=== PATIENT | female | born 1935 | race Caucasian/White ===

== ENCOUNTER 2017-10-06 13:23 | Emergency (ER) | payer OTHER ==
[~2017-10-06] VITALS: Ht 165.1 cm; Wt 71.7 kg
[~2017-10-06 13:23] MED LIST: ALPRAZOLAM0.5 M1 PO; ASPIRIN81 MG PO; ATENOLOL50 MG PO; CITALOPRAM HBR20 MG PO; CYPROHEPTADINE H4 MG PO; DONNATAL PO; GEMFIBROZIL600 MG PO; PRILOSEC OTC20 MG PO
--- NOTE | 2017-10-06 15:02 | Diagnostic Imaging Report ---
Exam: Head CT without contrast History: Trauma, fall Comparison studies: Head CT 02/08/2016 Technique: Axial images were obtained from the skull base to the vertex. Coronal and sagittal images reconstructed from the axial data. Intravenous contrast: None Findings: Scalp: No abnormalities. Bones: No fractures, blastic or lytic lesions. Brain sulci: Mildly prominent. Ventricles: Mild compensatory dilatation. No hydrocephalus. Extra-axial spaces: No masses, no fluid collection. Parenchyma: No mass, acute hemorrhage or acute cortical vascular insults. Chronic cortical-subcortical insult in the cuneus gyrus of the left medial occipital lobe. There are chronic lacunar infarcts in the left striatocapsular region, left frontal reyez radiata, left lateral, head of the right caudate nucleus and right medial lentiform nucleus which are unchanged. Sellar/suprasellar region: No abnormalities. Craniocervical junction: Patent foramen magnum. No Chiari one malformation. Incidental findings: Atherosclerotic calcifications in the carotid siphons.. IMPRESSION: No acute abnormalities. No changes from the previous head CT of 02/08/2016. Chronic findings: 1. Mild generalized volume loss. 2. Chronic left occipital insult. 3. Moderate chronic microvascular ischemic changes. 4. Chronic lacunar infarcts as described. Signed by: Dr. Freddie Starkey M.D. on 10/06/2017 2:59 PM
[2017-10-06 15:47] VITALS: BP 187/85
== END 2017-10-06 16:00 | disposition home or self-care (01) ==
LOC: ER 13:31
DX: S00.03XA Contusion of scalp, initial encounter (principal); S30.0XXA Contusion of lower back and pelvis, initial encounter; W01.198A Fall on same level from slipping, tripping and stumbling with subsequent striking against other object, initial encounter; I10 Essential (primary) hypertension; E78.00 Pure hypercholesterolemia, unspecified; F41.9 Anxiety disorder, unspecified; F32.9 Major depressive disorder, single episode, unspecified
CPT/HCPCS: 70450; 99283

== ENCOUNTER 2018-04-23 19:12 | Emergency (ER) | payer OTHER ==
[~2018-04-23] VITALS: Ht 165.1 cm; Wt 71.7 kg
--- OUTSIDE RECORDS SUMMARY | 2018-04-23 19:16 | XMS REPORT ---
Author Author [facility] Address Unknown Phone Unavailable Care Team Providers Care Alarm Mechanism Adjuster Name Role Phone Kimmy BLEDSOE Unavailable Unavailable Problems This patient has no known problems. Allergies, Adverse Reactions, Alerts This patient has no known allergies or adverse reactions. Medications This patient has no known medications. Results Test Description Test Time Test Comments Text Results Atomic Results Result Comments CT BRAIN WO [place] [address] Patient Name: YOLY CARRIZALES MR #: [id number] : 1935 Age/Sex: 82/F Req #: [id number] Adm Physician: Ordered by: SUSANNA BLEDSOE MD Report #: [id number] Location: ER Room/Bed: Procedure: [id number] CT/CT BRAIN WO Exam Date: 10/06/17 Exam Time: 1420 REPORT STATUS: Signed Exam: Head CT without contrast History: Trauma, fall Comparison studies: Head CT 02/08/2016 Technique: Axial images were obtained from the skull base to the vertex. Coronal and sagittal images reconstructed from the axial data. Intravenous contrast: None Findings: Scalp: No abnormalities. Bones: No fractures, blastic or lytic lesions. Brain sulci: Mildly prominent. Ventricles: Mild compensatory dilatation. No hydrocephalus. Extra-axial spaces: No masses, no fluid collection. Parenchyma: No mass, acute hemorrhage or acute cortical vascular insults. Chronic cortical- subcortical insult in the cuneus gyrus of the left medial occipital lobe. There are chronic lacunar infarcts in the left striatocapsular region, left frontal reyez radiata, left lateral, head of the right caudate nucleus and right medial lentiform nucleus which are unchanged. Sellar/suprasellar region: No abnormalities. Craniocervical junction: Patent foramen magnum. No Chiari one malformation. Incidental findings: Atherosclerotic calcifications in the carotid siphons.. IMPRESSION: No acute abnormalities. No changes from the previous head CT of 02/08/2016. Chronic findings: 1. Mild generalized volume loss. 2. Chronic left occipital insult. 3. Moderate chronic microvascular ischemic changes. 4. Chronic lacunar infarcts as described. Signed by: Dr. Misha Starkey M.D. on 10/06/2017 2:59 PM Dictated By: MISHA STARKEY MD [id number] Transcribed By: ANTONI on 10/06/17 9720 COPY TO: SUSANNA BLEDSOE MD
[2018-04-23] MEDS ORDERED: MORPHINE SULFATE 2 MG/ML SYR IV NR (19:30)
[2018-04-23] MEDS ORDERED: METOPROLOL TARTRATE INJ 1 MG/ML VIAL IV NR (19:30)
[2018-04-23] MEDS ORDERED: DIATRIZOATE MEGL/DIATRIZOA SOD 30 ML BTL PO ONE (19:38)
[2018-04-23 20:22] LABS: INR 0.87; PROTHROMBIN TIME 12.6 seconds (11.9-14.5)
[2018-04-23 20:23] LABS: PARTIAL THROMBOPLASTIN TIME 29.2 seconds (23.8-35.5)
[2018-04-23 20:33] LABS: ALANINE AMINOTRANSFERASE 12 IU/L (0-55); ALBUMIN 4.1 g/dL (3.5-5.0); ALBUMIN/GLOBULIN RATIO 1.1 (0.8-2.0); ALKALINE PHOSPHATASE 73 IU/L (40-150); AMYLASE 116 U/L (25-125); ANION GAP 18.9 mmol/L (8-16); BLOOD UREA NITROGEN 8 mg/dL (7-26); BUN/CREATININE RATIO 10 (6-25); CALCIUM 10.4 mg/dL (8.4-10.2); CARBON DIOXIDE 23 mmol/L (22-29); CHLORIDE 100 mmol/L (98-107); CREATINE KINASE 45 IU/L (29-168); CREATININE, SERUM 0.83 mg/dL (0.57-1.11); EST GLOMERULAR FILTRATION RATE > 60 ML/MIN (60-); GLUCOSE 97 mg/dL (74-118); LIPASE 80 U/L (8-78); MAGNESIUM 2.7 MG/DL (1.3-2.1); SODIUM 137 mmol/L (136-145)
[2018-04-23 20:34] LABS: POTASSIUM 4.9 mmol/L (3.5-5.1)
[2018-04-23] MEDS ORDERED: SODIUM CHLORIDE 0.9% 50ML 50 ML ONE (20:39)
[2018-04-23] MEDS ORDERED: IOPAMIDOL 370 MG/ML 200 ML INFUS..BTL INJ ONE (20:40)
[2018-04-23 20:45] LABS: BASOPHILS % 0.2 % (0.0-1.0); EOSINOPHILS # (AUTO) 0.2 (0.0-0.4); EOSINOPHILS % 4.9 % (0.0-6.0); HEMATOCRIT 41.6 % (34.2-44.1); HEMOGLOBIN 14.4 g/dL (12.0-16.0); LYMPHOCYTES # (AUTO) 1.8 (1.0-3.2); LYMPHOCYTES % 39.9 % (18.0-39.1); MEAN CORPUSCULAR HEMOGLOBIN 35.4 pg (28-32); MEAN CORPUSCULAR HGB CONC 34.6 g/dL (31-35); MEAN CORPUSCULAR VOLUME 102.2 fL (81-99); MONOCYTES # (AUTO) 0.3 (0.2-0.8); MONOCYTES % 5.8 % (4.4-11.3); NEUTROPHILS # (AUTO) 2.2 (2.1-6.9); PLATELET COUNT 156 x10e3/uL (140-360); RED BLOOD COUNT 4.07 x10e6/uL (3.6-5.1); RED CELL DISTRIBUTION WIDTH 12.7 % (11.7-14.4)
--- NOTE | 2018-04-23 21:24 | Diagnostic Imaging Report ---
EXAM: CT ABDOMEN AND PELVIS with IV CONTRAST DATE: 04/23/2018 7:28 PM Time stamp on Exam: 2056 hours INDICATION: Left hip pain on the left lower quadrant pain, concern for incarcerated hernia COMPARISON: None TECHNIQUE: The abdomen and pelvis were scanned using a multidetector helical scanner. Coronal and sagittal reformations were obtained. Dose modulation, iterative reconstruction, and/or weight based adjustment of the mA/kV was utilized to reduce the radiation dose to as low as reasonably achievable. Routine protocol performed. IV Contrast: 100 cc Isovue-370 Oral Contrast: Gastrografin FINDINGS: LOWER THORAX: No consolidations LIVER: No masses BILIARY: The gallbladder is not visualized. No ductal dilation. SPLEEN: No masses PANCREAS: No masses ADRENALS: No nodules KIDNEYS: Symmetric perfusion. No enhancing masses. No hydronephrosis. GI TRACT: No distention, wall thickening or evidence of obstruction. Moderate amount of retained colonic stool. Sigmoid colon diverticulosis without CT findings of diverticulitis. VESSELS: Advanced atherosclerotic changes of the abdominal aorta and branches without aneurysm. PERITONEUM/RETROPERITONEUM: No free air or fluid LYMPH NODES: No lymphadenopathy REPRODUCTIVE ORGANS: Uterus and ovaries are not visualized. BLADDER: Unremarkable SOFT TISSUES: Small left fat-containing inguinal hernia. BONES: No suspicious bone lesions. IMPRESSION: Small fat-containing left inguinal hernia without evidence of strangulation. Moderate amount of retained colonic stool without evidence for obstruction. Signed by: Dr. Adelita Calixto M.D. on 04/23/2018 9:21 PM
[2018-04-23] MEDS ORDERED: NIFEDIPINE 10 MG CAP PO ONE (21:40)
[2018-04-23] MEDS ORDERED: NIFEDIPINE 10 MG CAP PO STA (21:56)
[2018-04-23 22:05] LABS: BILIRUBIN,URINE NEGATIVE (NEGATIVE); CLARITY,URINE CLEAR (CLEAR); COLOR,URINE YELLOW (YELLOW); KETONES,URINE NEGATIVE (NEGATIVE); LEUKOCYTE ESTERASE ,URINE NEGATIVE (NEGATIVE); NITRITE,URINE NEGATIVE (NEGATIVE); PROTEIN,URINE DIPSTICK NEGATIVE (NEGATIVE); URINE UROBILINOGEN 0.2 mg/dL (0.2 - 1)
[2018-04-23] MEDS ORDERED: SODIUM CHLORIDE 0.9% 500ML 500 ML IV ONE (22:15)
[2018-04-23 22:23] LABS: BACTERIA,URINE FEW /HPF; EPITHELIAL CELLS,URINE FEW /LPF; RBC,URINE 0-5 /HPF (0-5); WBC,URINE (MAN) 0-5 /HPF (0-5)
[2018-04-23 23:06] VITALS: BP 165/76
== END 2018-04-23 23:11 | disposition home or self-care (01) ==
LOC: ER 19:12
DX: R10.32 Left lower quadrant pain (principal); S39.011A Strain of muscle, fascia and tendon of abdomen, initial encounter; K59.00 Constipation, unspecified; I10 Essential (primary) hypertension; E78.5 Hyperlipidemia, unspecified; G89.29 Other chronic pain; F41.9 Anxiety disorder, unspecified; F32.9 Major depressive disorder, single episode, unspecified; F17.210 Nicotine dependence, cigarettes, uncomplicated
CPT/HCPCS: 36415; 74177; 80053; 81001; 82150; 82550; 82553; 83605; 83690; 83735; 84484; 85025; 85610; 85730; 99284; J2270; J7040; Q9663; Q9967

== ENCOUNTER 2019-12-20 17:32 | Inpatient (IN) | payer MEDICARE, OTHER ==
[~2019-12-20] VITALS: Ht 165.1 cm; Wt 71.7 kg
--- NOTE | 2019-12-20 18:14 | Emergency Department Note ---
History of Present Illnes History of Present Illness Chief Complaint: COVID PUI History of Present Illness This is a 84 year old female with diffuse abd pain and cough of unknown duration. per son, patient with volumous diarrhea at home and progressive weakness over the course of the last several days . Historian: Patient Arrival Mode: Car History limited by: language barrier Onset (how long ago): day(s) Radiation: Reports abdomen Severity: moderate Onset quality: gradual Duration (how long): week(s) Timing of current episode: constant Progression: worsening Chronicity: new Relieving factors: none Exacerbating factors: none Associated symptoms: Reports fever/chills Treatments prior to arrival: none Past Medical/Family History Physician Review I have reviewed the patient's past medical and family history. Any updates have been documented here. Past Medical History Recent Fever: No Clinical Suspicion of Infectio: Yes New/Unexplained Change in Ment: No Past Medical History: Hypertension, Anxiety, Depression, Hyperlipedemia, Chronic Back Pain Other Medical History: SEASONAL ALLERGIES ARTHRITIS Past Surgical History: Cholecysctectomy, Hysterectomy, Back Surgery Other Surgery: DOZEN ON FEET Social History Smoking Cessation: Current some day smoker Alcohol Use: None Any Illegal Drug Use: No Other Last Tetanus: OOD Review of Systems Review of Systems Constitutional: Reports no symptoms EENTM: Reports no symptoms Cardiovascular: Reports no symptoms Respiratory: Reports cough Gastrointestinal: Reports diarrhea, Reports nausea, Reports vomiting Genitourinary: Reports no symptoms Musculoskeletal: Reports no symptoms Integumentary: Reports no symptoms Neurological: Reports no symptoms Psychological: Reports no symptoms Endocrine: Reports no symptoms Hematological/Lymphatic: Reports no symptoms Physical Exam Related Data Allergies: Coded Allergies: piroxicam (Verified Allergy, Mild, SWELLING, 10/06/17) Triage Vital Signs Vital Signs Date Time Temp Pulse Resp B/P (MAP) Pulse Ox O2 Delivery O2 Flow Rate FiO2 12/20/19 18:09 96.7 108 24 114/56 87 Room Air Vital signs reviewed: Yes Physical Exam CONSTITUTIONAL Constitutional: Present ill appearing HENT HENT: Present normocephalic, Present atraumatic, Present oropharynx clear/moist, Present nose normal HENT L/R: Present left ext ear normal, Present right ext ear normal EYES Eyes: Reports PERRL, Reports conjunctivae normal NECK Neck: Present ROM normal PULMONARY Pulmonary: Present effort normal, Present breath sounds normal CARDIOVASCULAR Cardiovascular: Present heart sounds normal, Present tachycardia GASTROINTESTINAL Abdominal: Present soft, Present nontender, Present bowel sounds normal GENITOURINARY Genitourinary: Present exam deferred SKIN Skin: Present warm, Present dry MUSCULOSKELETAL Musculoskeletal: Present ROM normal NEUROLOGICAL Neurological: Present alert, Present oriented x 3, Present no gross motor or sensory deficits PSYCHOLOGICAL Psychological: Present mood/affect normal, Present judgement normal Results Laboratory Lab results reviewed: Yes Laboratory comments Laboratory Tests Test 12/20/19 19:40 White Blood Count 10.07 x10e3/uL (4.8-10.8) Red Blood Count 4.54 x10e6/uL (3.6-5.1) Hemoglobin 15.2 g/dL (12.0-16.0) Hematocrit 42.7 % (34.2-44.1) Mean Corpuscular Volume 94.1 fL (81-99) Mean Corpuscular Hemoglobin 33.5 pg (28-32) Mean Corpuscular Hemoglobin Concent 35.6 g/dL (31-35) Red Cell Distribution Width 13.2 % (11.7-14.4) Platelet Count 161 x10e3/uL (140-360) Neutrophils (%) (Auto) 86.0 % (38.7-80.0) Lymphocytes (%) (Auto) 6.8 % (18.0-39.1) Monocytes (%) (Auto) 6.3 % (4.4-11.3) Eosinophils (%) (Auto) 0.1 % (0.0-6.0) Basophils (%) (Auto) 0.2 % (0.0-1.0) Neutrophils # (Auto) 8.7 (2.1-6.9) Lymphocytes # (Auto) 0.7 (1.0-3.2) Monocytes # (Auto) 0.6 (0.2-0.8) Eosinophils # (Auto) 0.0 (0.0-0.4) Basophils # (Auto) 0.0 (0.0-0.1) Absolute Immature Granulocyte (auto 0.06 x10e3/uL (0-0.1) Sodium Level 138 mmol/L (136-145) Potassium Level 2.8 mmol/L (3.5-5.1) Chloride Level 95 mmol/L (98-107) Carbon Dioxide Level 31 mmol/L (22-29) Anion Gap 14.8 mmol/L (8-16) Blood Urea Nitrogen 24 mg/dL (7-26) Creatinine 0.79 mg/dL (0.57-1.11) Estimat Glomerular Filtration Rate > 60 ML/MIN (60-) BUN/Creatinine Ratio 30 (6-25) Glucose Level 124 mg/dL (74-118) Calcium Level 9.9 mg/dL (8.4-10.2) Total Bilirubin 0.8 mg/dL (0.2-1.2) Aspartate Amino Transf (AST/SGOT) 52 IU/L (5-34) Alanine Aminotransferase (ALT/SGPT) 38 IU/L (0-55) Alkaline Phosphatase 73 IU/L (40-150) Creatine Kinase 299 IU/L (29-168) Creatine Kinase MB 5.60 ng/mL (0-5.0) Troponin I 0.042 ng/mL (0-0.300) B-Type Natriuretic Peptide 216.6 pg/mL (0-100) Total Protein 6.7 g/dL (6.5-8.1) Albumin 3.2 g/dL (3.5-5.0) Globulin 3.5 g/dL (2.3-3.5) Albumin/Globulin Ratio 0.9 (0.8-2.0) Imaging Imaging results reviewed: Yes Impressions [place] [address] Patient Name: YOLY CARRIZALES MR #: [id number] : 1935 Age/Sex: 84/F Req #: [id number] Adm Physician: Ordered by: SAM NEGRETE DO Report #: [id number] Location: ER Room/Bed: Procedure: CT/CT CHEST W Exam Date: 12/20/19 Exam Time: 2206 REPORT STATUS: Signed EXAM: CT Chest, Abdomen and Pelvis WITH contrast INDICATION: Weakness COMPARISON: 04/23/2018 TECHNIQUE: Chest, abdomen and pelvis were scanned utilizing a multidetector helical scanner from the lung apex to the pubic symphysis after administration of IV contrast. Coronal and sagittal reformations were obtained. Routine protocol was performed. Scan was performed when during portal venous phase. IV CONTRAST: 150 mL of Omnipaque 300 ORAL CONTRAST: Water COMPLICATIONS: None RADIATION DOSE: Total DLP: 843 mGy*cm Estimated effective dose: (DLP x 0.015 x size factor) mSv CTDIvol has been reviewed. It is below the limits set by the Radiation Protocol Committee (RPC). Dose modulation, iterative reconstruction, and/or weight based adjustment of the mA/kV was utilized to reduce the radiation dose to as low as reasonably achievable. FINDINGS: LINES and TUBES: None. LUNGS AND AIRWAYS: Large soft tissue enhancing mass centered in the right hilar region measures at least 8.6 x 6.5 cm (image 27). The mass results in complete obstruction of the right upper lobe bronchus with associated complete right upper lobe collapse. The mass encases and severely narrows the bronchus intermedius with associated distal subsegmental atelectasis and postobstructive pneumonitis. The right upper lobe pulmonary artery is severely narrowed by the mass. There is mild to moderate narrowing of the right middle lobe and right lower lobe pulmonary artery branches. 1.4 cm partially calcified left lower lobe pulmonary nodule consistent with a granuloma. Additional smaller calcified left upper lobe granuloma. Mild upper lobe predominant emphysema. PLEURA: Small mildly complex right pleural effusion. No pneumothorax. HEART AND MEDIASTINUM: Right paratracheal mediastinal soft tissue mass indistinguishable from the above described lung mass measures up to 4.7 x 4.2 cm. Normal heart size. No pericardial effusion. Prominent subcentimeter lymph nodes at the base of the neck. HEPATOBILIARY: Innumerable hypodense hepatic metastatic lesions measure up to 3.5 cm. No biliary ductal dilatation. GALLBLADDER: Poorly visualized and possibly surgically absent. SPLEEN: Calcified splenic granulomas. No splenomegaly. PANCREAS: No focal masses or ductal dilatation. ADRENALS: Prominent adrenal glands without discrete nodules. KIDNEYS/URETERS: Kidneys enhance symmetrically. No hydronephrosis. No cystic or solid mass lesions. No stones. GI TRACT: Moderate circumferential thickening of the rectal mucosa (image 120). Sigmoid diverticulosis. No specific evidence of small bowel obstruction. PELVIC ORGANS/BLADDER: The urinary bladder is unremarkable. The uterus is surgically absent. LYMPH NODES: No gross adenopathy. VESSELS: Advanced diffuse atherosclerotic vascular disease. Ectasia of the abdominal aorta. PERITONEUM / RETROPERITONEUM: No free air or fluid. BONES: Age-indeterminate mild compression deformity of the T12 vertebral body superiorly. Advanced thoracolumbar degenerative change. Indeterminate 1 cm sclerotic lesion of the right posterior iliac bone (image 97). SOFT TISSUES: Unremarkable. IMPRESSION: 1. Large soft tissue mass of the right hilar region with mediastinal extension most suggestive of small cell lung carcinoma. 2. The mass results in complete obstruction of the right upper lobe bronchus with associated complete right upper lobe collapse. The mass severely narrows the bronchus intermedius with associated distal subsegmental atelectasis and postobstructive pneumonitis. 3. Small malignant right pleural effusion. 4. Innumerable hepatic metastases. 5. Moderate circumferential mucosal thickening of the rectum. Differential considerations include colitis/proctitis and malignancy. 6. Indeterminate 1 cm sclerotic lesion of the right posterior iliac bone. Consider correlation with nuclear medicine bone scan. Signed by: Susanna Yao MD on 12/20/2019 10:45 PM Dictated By: SUSANNA YAO MD 44 Transcribed By: ANTONI on 12/20/192244 COPY TO: SAM NEGRETE DO~ Procedures 12 Lead ECG Interpretation ECG Interpretation : ECG: ECG 1 Edge Polisher: Interpreted by ED physician Date: Dec 20, 2019 Time: 19:52 Prior ECG tracings: reviewed Rhythm: atrial fibrillation Rate: tachycardia BPM: 104 QRS axis: left ST segment flattening: V1, V2, V3, V4, V5, V6 Critical Care Time Critcal care necessary due to: respiratory failure Critcal care time spent by me: develop tx plan w patient/surrogate, discussion w consultants, discussion w primary provider, evaluation patient response to tx, examination of patient, obtaining hx from patient/surrogate, order/review laboratory studies, order/review radiographic studies, pulse oximetry, re- evaluation of patient condition Assessment & Plan Medical Decision Making MDM 84 yof presents with dyspea and hypoxia. Slight Respiratory distress upon arrival. Diff Dx : PE, PTX, CHF, Sepsis, COVID-19 URI infection, ACS, ARDS, airway obstruction, Lung CA. Assessment & Plan Final Impression: (1) Lung cancer (2) Hypoxia (3) Hypokalemia (4) Liver metastases (5) Atrial fibrillation Depart Disposition: ADMITTED Last Vital Signs Date Time Temp Pulse Resp B/P (MAP) Pulse Ox O2 Delivery O2 Flow Rate FiO2 12/20/19 18:09 96.7 108 24 114/56 87 Room Air Home Meds Reported Medications Baring-3 Fatty Acids/Fish Oil (FISH OIL 1,000 MG SOFTGEL) 1 Each Capsule, 2 CAP PO DAILY 12/21/19 Levocetirizine Dihydrochloride (LEVOCETIRIZINE DIHYDROCHLORIDE) 5 Mg Tablet, 1 TAB PO HS 12/21/19 Metoprolol Succinate (METOPROLOL SUCCINATE) 50 Mg Tab.er.24h, 50 MG PO DAILY, MG 12/21/19 Citalopram Hydrobromide (CITALOPRAM HBR) 20 Mg Tablet, 20 MG PO DAILY, TAB 12/21/19 Lisinopril (LISINOPRIL) 10 Mg Tablet, 10 MG PO DAILY, #30 TAB 12/21/19 Aspirin (ASPIRIN) 81 Mg Tab.chew, 81 MG PO DAILY 04/13/13 Alprazolam (ALPRAZOLAM) 0.5 Mg Tab.rapdis, 0.5 MG PO BID PRN for ANXIETY 04/13/13 Gemfibrozil (GEMFIBROZIL) 600 Mg Tablet, 600 MG PO BID 04/13/13 Discontinued Reported Medications Atenolol (ATENOLOL) 50 Mg Tablet, 50 MG PO DAILY 04/13/13 SAM NEGRETE DO Dec 20, 2019 18:14
[2019-12-20] MEDS ORDERED: ASPIRIN 81 MG CHEW TAB PO ONE (18:15)
[2019-12-20 19:55] LABS: BASOPHILS % 0.2 % (0.0-1.0); EOSINOPHILS % 0.1 % (0.0-6.0); HEMATOCRIT 42.7 % (34.2-44.1); HEMOGLOBIN 15.2 g/dL (12.0-16.0); LYMPHOCYTES # (AUTO) 0.7 (1.0-3.2); LYMPHOCYTES % 6.8 % (18.0-39.1); MEAN CORPUSCULAR HEMOGLOBIN 33.5 pg (28-32); MEAN CORPUSCULAR HGB CONC 35.6 g/dL (31-35); MEAN CORPUSCULAR VOLUME 94.1 fL (81-99); MONOCYTES # (AUTO) 0.6 (0.2-0.8); MONOCYTES % 6.3 % (4.4-11.3); NEUTROPHILS # (AUTO) 8.7 (2.1-6.9); PLATELET COUNT 161 x10e3/uL (140-360); RED BLOOD COUNT 4.54 x10e6/uL (3.6-5.1); RED CELL DISTRIBUTION WIDTH 13.2 % (11.7-14.4)
[2019-12-20 20:15] LABS: ALANINE AMINOTRANSFERASE 38 IU/L (0-55); ALBUMIN 3.2 g/dL (3.5-5.0); ALBUMIN/GLOBULIN RATIO 0.9 (0.8-2.0); ALKALINE PHOSPHATASE 73 IU/L (40-150); ANION GAP 14.8 mmol/L (8-16); BLOOD UREA NITROGEN 24 mg/dL (7-26); BUN/CREATININE RATIO 30 (6-25); CALCIUM 9.9 mg/dL (8.4-10.2); CARBON DIOXIDE 31 mmol/L (22-29); CHLORIDE 95 mmol/L (98-107); CREATINE KINASE 299 IU/L (29-168); CREATININE, SERUM 0.79 mg/dL (0.57-1.11); EST GLOMERULAR FILTRATION RATE > 60 ML/MIN (60-); GLUCOSE 124 mg/dL (74-118); SODIUM 138 mmol/L (136-145)
[2019-12-20 20:17] LABS: POTASSIUM 2.8 mmol/L (3.5-5.1)
--- NOTE | 2019-12-20 20:41 | Diagnostic Imaging Report ---
EXAMINATION: CHEST SINGLE (PORTABLE) INDICATION: Cough. Weakness. COMPARISON: None available in PACS at this time although the prior examinations 2016. FINDINGS: TUBES and LINES: None. LUNGS and PLEURA: Increased density throughout right hemithorax with deviation of the trachea to the right of the midline may represent atelectasis/scarring, not completely evaluated with this examination. Consolidation not excluded. Probable small right pleural effusion. Left lung is compensatorily hyperinflated. No pneumothorax. HEART AND MEDIASTINUM: The cardiac silhouette is not otherwise. There are diffuse atherosclerotic calcifications within the aorta. BONES AND SOFT TISSUES: No acute osseous lesion. Bilateral humeral head exophytic screw. UPPER ABDOMEN: No free air under the diaphragm. Calcific secretions in the left upper quadrant represent splenic artery calcifications. IMPRESSION: Abnormal right hemithorax may a combination of atelectasis/collapse and pleural effusion. Considered CT chest with contrast for further evaluation. Signed by: Dr. Aline Nowak M.D. on 12/20/2019 8:37 PM
[2019-12-20] MEDS ORDERED: AZITHROMYCIN 500MG/NS 250 ML 250 ML IV STA (21:28)
--- NOTE | 2019-12-20 22:48 | Diagnostic Imaging Report ---
EXAM: CT Chest, Abdomen and Pelvis WITH contrast INDICATION: Weakness COMPARISON: 04/23/2018 TECHNIQUE: Chest, abdomen and pelvis were scanned utilizing a multidetector helical scanner from the lung apex to the pubic symphysis after administration of IV contrast. Coronal and sagittal reformations were obtained. Routine protocol was performed. Scan was performed when during portal venous phase. IV CONTRAST: 150 mL of Omnipaque 300 ORAL CONTRAST: Water COMPLICATIONS: None RADIATION DOSE: Total DLP: 843 mGy*cm Estimated effective dose: (DLP x 0.015 x size factor) mSv CTDIvol has been reviewed. It is below the limits set by the Radiation Protocol Committee (RPC). Dose modulation, iterative reconstruction, and/or weight based adjustment of the mA/kV was utilized to reduce the radiation dose to as low as reasonably achievable. FINDINGS: LINES and TUBES: None. LUNGS AND AIRWAYS: Large soft tissue enhancing mass centered in the right hilar region measures at least 8.6 x 6.5 cm (image 27). The mass results in complete obstruction of the right upper lobe bronchus with associated complete right upper lobe collapse. The mass encases and severely narrows the bronchus intermedius with associated distal subsegmental atelectasis and postobstructive pneumonitis. The right upper lobe pulmonary artery is severely narrowed by the mass. There is mild to moderate narrowing of the right middle lobe and right lower lobe pulmonary artery branches. 1.4 cm partially calcified left lower lobe pulmonary nodule consistent with a granuloma. Additional smaller calcified left upper lobe granuloma. Mild upper lobe predominant emphysema. PLEURA: Small mildly complex right pleural effusion. No pneumothorax. HEART AND MEDIASTINUM: Right paratracheal mediastinal soft tissue mass indistinguishable from the above described lung mass measures up to 4.7 x 4.2 cm. Normal heart size. No pericardial effusion. Prominent subcentimeter lymph nodes at the base of the neck. HEPATOBILIARY: Innumerable hypodense hepatic metastatic lesions measure up to 3.5 cm. No biliary ductal dilatation. GALLBLADDER: Poorly visualized and possibly surgically absent. SPLEEN: Calcified splenic granulomas. No splenomegaly. PANCREAS: No focal masses or ductal dilatation. ADRENALS: Prominent adrenal glands without discrete nodules. KIDNEYS/URETERS: Kidneys enhance symmetrically. No hydronephrosis. No cystic or solid mass lesions. No stones. GI TRACT: Moderate circumferential thickening of the rectal mucosa (image 120). Sigmoid diverticulosis. No specific evidence of small bowel obstruction. PELVIC ORGANS/BLADDER: The urinary bladder is unremarkable. The uterus is surgically absent. LYMPH NODES: No gross adenopathy. VESSELS: Advanced diffuse atherosclerotic vascular disease. Ectasia of the abdominal aorta. PERITONEUM / RETROPERITONEUM: No free air or fluid. BONES: Age-indeterminate mild compression deformity of the T12 vertebral body superiorly. Advanced thoracolumbar degenerative change. Indeterminate 1 cm sclerotic lesion of the right posterior iliac bone (image 97). SOFT TISSUES: Unremarkable. IMPRESSION: 1. Large soft tissue mass of the right hilar region with mediastinal extension most suggestive of small cell lung carcinoma. 2. The mass results in complete obstruction of the right upper lobe bronchus with associated complete right upper lobe collapse. The mass severely narrows the bronchus intermedius with associated distal subsegmental atelectasis and postobstructive pneumonitis. 3. Small malignant right pleural effusion. 4. Innumerable hepatic metastases. 5. Moderate circumferential mucosal thickening of the rectum. Differential considerations include colitis/proctitis and malignancy. 6. Indeterminate 1 cm sclerotic lesion of the right posterior iliac bone. Consider correlation with nuclear medicine bone scan. Signed by: Zachariah Hall MD on 12/20/2019 10:45 PM
[2019-12-20] MEDS ORDERED: POTASSIUM CHLORIDE 20 MEQ TAB CR PO STA (23:18)
[2019-12-20] MEDS ORDERED: POTASSIUM CHLORIDE 10MEQ/100ML 100 ML IV ONE (23:30)
[2019-12-21] VITALS (9 sets, daily range): BP systolic 149–188; BP diastolic 81–102
[2019-12-21] MEDS ORDERED: SODIUM CHLORIDE 0.9% 1000ML 1,000 ML IV ONE (01:45)
[2019-12-21] MEDS: SOD CHL 0.45%/POT CHL 20MEQ 1,000 ML IV SCH ×2 (03:35→12:34)
--- NOTE | 2019-12-21 04:05 | NUR ---
Received report from Dominik RN, per ED RN, consult (Dr. Rolon) was already notified of patient's admission. Received patient from ER, alert, not in distress, transferred comfortably in bed. Call light within easy reach, advised to call for assistance anytime. Needs urine specimen, patient instructed to call when ready to pee, bedside commode and hat at bedside, will continue to monitor patient
[2019-12-21] MEDS ORDERED: IOPAMIDOL 370 MG/ML 200 ML INFUS..BTL INJ ONE (04:29)
[2019-12-21] MEDS ORDERED: SODIUM CHLORIDE 0.9% 50ML 50 ML ONE (04:30)
[2019-12-21 09:13] LABS: BASOPHILS % 0.1 % (0.0-1.0); EOSINOPHILS % 0.1 % (0.0-6.0); HEMATOCRIT 39.7 % (34.2-44.1); HEMOGLOBIN 14.2 g/dL (12.0-16.0); LYMPHOCYTES # (AUTO) 0.6 (1.0-3.2); LYMPHOCYTES % 7.2 % (18.0-39.1); MEAN CORPUSCULAR HEMOGLOBIN 33.5 pg (28-32); MEAN CORPUSCULAR HGB CONC 35.8 g/dL (31-35); MEAN CORPUSCULAR VOLUME 93.6 fL (81-99); MONOCYTES # (AUTO) 0.3 (0.2-0.8); MONOCYTES % 4.2 % (4.4-11.3); NEUTROPHILS # (AUTO) 6.8 (2.1-6.9); NEUTROPHILS % 87.7 % (38.7-80.0); PLATELET COUNT 133 x10e3/uL (140-360); RED BLOOD COUNT 4.24 x10e6/uL (3.6-5.1); RED CELL DISTRIBUTION WIDTH 13.2 % (11.7-14.4)
[2019-12-21 10:06] LABS: ALANINE AMINOTRANSFERASE 33 IU/L (0-55); ALBUMIN 2.8 g/dL (3.5-5.0); ALBUMIN/GLOBULIN RATIO 0.9 (0.8-2.0); ALKALINE PHOSPHATASE 63 IU/L (40-150); ANION GAP 11.2 mmol/L (8-16); BLOOD UREA NITROGEN 20 mg/dL (7-26); BUN/CREATININE RATIO 29 (6-25); CALCIUM 8.9 mg/dL (8.4-10.2); CARBON DIOXIDE 32 mmol/L (22-29); CHLORIDE 97 mmol/L (98-107); EST GLOMERULAR FILTRATION RATE > 60 ML/MIN (60-); GLUCOSE 139 mg/dL (74-118); SODIUM 138 mmol/L (136-145)
[2019-12-21 10:12] LABS: POTASSIUM 2.2 mmol/L (3.5-5.1)
[2019-12-21] MEDS ORDERED: LISINOPRIL10 MG PO (10:35)
[2019-12-21] MEDS ORDERED: CITALOPRAM HBR20 MG PO (10:35)
[2019-12-21] MEDS ORDERED: FISH OIL 1,0001 EAC3 PO (10:35)
[2019-12-21] MEDS ORDERED: LEVOCETIRIZINE D5 MG PO (10:35)
[2019-12-21] MEDS ORDERED: METOPROLOL SUCC50 MG PO (10:35)
[2019-12-21] MEDS ORDERED: ALBUTEROL/IPRATROPIUM 3 ML NEB NEB PRN (10:45)
[2019-12-21] MEDS ORDERED: POTASSIUM CHLORIDE 10MEQ EA PO ONE (11:30)
--- NOTE | 2019-12-21 11:34 | History and Physical ---
PRIMARY CARE PHYSICIAN: Bev. CHIEF COMPLAINT: Increasing weakness and confusion. HISTORY OF PRESENT ILLNESS: The patient is an 84-year-old female, progressively weak with increasing shortness of breath and also confusion. The patient came to the hospital and she had multiple imaging tests done including CT chest, abdomen and pelvis. The tests showed that she had a large lung mass in the right hilar region with mediastinal extension. The patient's mass resulting complete obstruction of the right upper lobe bronchus. The complete right upper lobe lung collapsed. The mass severely narrowed the bronchus intermedius as well. There is small malignant right pleural effusion. There is extensive hepatic metastasis. There is also moderate circumferential mucosal thickening of the rectum as well. The patient has differential, considered has been proctitis, colitis, or malignancy. The patient is admitted for further workup. She is also found to have a 1 cm sclerotic lesion in the right posterior iliac bone. PAST MEDICAL HISTORY: COPD, progressive weight loss, hypertension, anxiety disorder, dyslipidemia, and allergic rhinitis. PAST SURGICAL HISTORY: Noncontributory, cholecystectomy, hysterectomy, and low back surgery. SOCIAL HISTORY: The patient lives with her son. Her [id number] checked up on the patient on a regular basis. ALLERGIES: ALLERGY TO PIROXICAM. HOME MEDICATIONS: Alprazolam, aspirin, atenolol, Lexapro, gemfibrozil, Zyrtec, lisinopril, metoprolol succinate, and fish oil. PHYSICAL EXAMINATION: VITAL SIGNS: Temperature is 97, blood pressure 188/82, pulse rate is 72, and respirations 22. GENERAL: The patient is not in acute distress. She is awake and confused. HEENT: Normocephalic and atraumatic. Anicteric. NECK: Supple grossly. PULMONARY: Diminished breath sounds bilaterally with coarses and rhonchi. CARDIOVASCULAR: S1, S2. Regular rate and rhythm. ABDOMEN: Cachexia. EXTREMITIES: No cyanosis or edema. NEUROLOGIC: The patient is confused, but moving all extremities. LABORATORY DATA: Sodium is 138, potassium 2.8, chloride 95, bicarb 31, BUN is 24, creatinine 0.7, and glucose 124. WBC is 10, hemoglobin 15.2, hematocrit 43, and platelets 161. IMPRESSION: 1. Right lung mass with hepatic metastasis, possible bone metastasis. 2. Confusion. We will check on the patient's MRI. 3. Medical debility with poor functional status. 4. Heavy smoker with multiple chronic other medical problems. PLAN: Consultation with oncologist, Dr. Werner. The patient has [facility]. Consultation with Dr. Freddie Luong. The patient may or may not need a tissue biopsy given the imaging test results. In the meantime, supportive the patient antibiotics. Resume home medication. Blood pressure is controlled. Pain control as needed. Nebulizer treatment. Oxygen support. I did talk to the patient's [id number], Jeanna Carreon and that she has confirmed that this is a new diagnosis for the patient. MD ADELINE Hinds/FBAY /[id number]
[2019-12-21] MEDS ORDERED: AMLODIPINE BESYLATE 10 MG TAB PO ONE (12:15)
[2019-12-21] MEDS: CEFTRIAXONE SOD 1 GM/NS 50 ML 50 ML IV SCH (12:34)
[2019-12-21] MEDS: METRONIDAZOLE 500MG/NS 100ML 100 ML IV SCH ×2 (14:00→19:53)
--- NOTE | 2019-12-21 15:55 | Consultation ---
DATE OF CONSULTATION: Pulmonary consultation Patient of Dr. Roth , Dr. Trimble, and Dr. Werner. HISTORY OF PRESENT ILLNESS: A charming 84-year-old woman, admitted with confusion and weakness, declined after falling in a used car lot. She has history of hypertension, anxiety, depression, chronic back pain, atrial fibrillation, and hypertension. ALLERGIES: ALLERGIC TO PIROXICAM. MEDICATIONS: Her medications include aspirin, alprazolam, Lopid, atenolol, Celexa, lisinopril, metoprolol, omega-3 fatty acids, and zyrtec. SOCIAL HISTORY: The patient smokes a pack a day. Daughter says she is a chain smoker for about 65 years. Continues to smoke, PAST SURGICAL HISTORY: Gallbladder surgery, hysterectomy, back surgery, and foot surgery. She is unsure of certain as where she was born and what work she did in the past. She does admit to having lost quite a bit of weight. PHYSICAL EXAMINATION: GENERAL: A frail white female, in no acute distress, looking older than her stated age. VITAL SIGNS: Temperature 97.5, pulse 87, blood pressure 185/91. Some temporal wasting. LUNGS: Diminished breath sounds, right chest. HEART: Regular rhythm. ABDOMEN: Nontender. EXTREMITIES: Nonedematous. IMAGING DATA: CT was reviewed. There is evidence of lung mass obstructing the right upper lobe with multiple liver metastasis. This was explained to the patient. ASSESSMENT AND PLAN: Options discussed with her and with her daughter for bronchoscopy and biopsy of liver biopsy. The patient's family is agreeable to liver biopsy first of nondiagnostic, then agree to bronchoscopy. This will require more anesthetic. Liver biopsy will also provide staging, though, this is obviously an advanced stage IV cancer. There would be a possible postobstructive pneumonia, uncontrolled hypertension. Attempt to schedule biopsy on Tuesday. Thank you for this kind referral. MD ANAIS Piper/FABY /[id number] ROSALES
[2019-12-21] MEDS: GEMFIBROZIL 600 MG TAB PO SCH (17:27)
--- NOTE | 2019-12-21 19:05 | NUR ---
RECEIVED REPORT FROM PREVIOUS NURSE. CALL LIGHT WITHIN REACH. PATIENT IN BED. ROUNDING PERFORMED.
[2019-12-21] MEDS: MORPHINE SULFATE 2 MG/ML SYR 1ML IV PRN (19:59)
[2019-12-21] MEDS: ONDANSETRON HCL INJ 2MG/ML 2ML 2 MG/ML VIAL IV PRN (19:59)
[2019-12-22] VITALS (8 sets, daily range): BP systolic 121–161; BP diastolic 67–82
[2019-12-22] MEDS: METRONIDAZOLE 500MG/NS 100ML 100 ML IV SCH ×3 (03:35→19:50)
[2019-12-22 06:16] LABS: BASOPHILS % 0.2 % (0.0-1.0); HEMOGLOBIN 13.3 g/dL (12.0-16.0); LYMPHOCYTES # (AUTO) 0.5 (1.0-3.2); LYMPHOCYTES % 7.5 % (18.0-39.1); MEAN CORPUSCULAR HEMOGLOBIN 34.3 pg (28-32); MEAN CORPUSCULAR VOLUME 97.9 fL (81-99); MONOCYTES # (AUTO) 0.2 (0.2-0.8); MONOCYTES % 3.6 % (4.4-11.3); NEUTROPHILS # (AUTO) 5.4 (2.1-6.9); NEUTROPHILS % 87.6 % (38.7-80.0); PLATELET COUNT 118 x10e3/uL (140-360); RED BLOOD COUNT 3.88 x10e6/uL (3.6-5.1); RED CELL DISTRIBUTION WIDTH 13.1 % (11.7-14.4)
[2019-12-22 06:30] LABS: INR 0.96; PROTHROMBIN TIME 13.4 seconds (11.9-14.5)
[2019-12-22 06:42] LABS: ALANINE AMINOTRANSFERASE 30 IU/L (0-55); ALBUMIN 2.6 g/dL (3.5-5.0); ALBUMIN/GLOBULIN RATIO 0.9 (0.8-2.0); ALKALINE PHOSPHATASE 60 IU/L (40-150); BLOOD UREA NITROGEN 15 mg/dL (7-26); BUN/CREATININE RATIO 23 (6-25); CALCIUM 8.7 mg/dL (8.4-10.2); CARBON DIOXIDE 29 mmol/L (22-29); CHLORIDE 100 mmol/L (98-107); CREATININE, SERUM 0.64 mg/dL (0.57-1.11); EST GLOMERULAR FILTRATION RATE > 60 ML/MIN (60-); GLUCOSE 106 mg/dL (74-118); PHOSPHORUS 2.6 MG/DL (2.3-4.7); SODIUM 137 mmol/L (136-145)
[2019-12-22] MEDS: SOD CHL 0.45%/POT CHL 20MEQ 1,000 ML IV SCH ×3 (06:45→17:24)
[2019-12-22 07:00] LABS: THYROID STIMULATING HORMONE 0.432 uIU/mL (0.350-4.940)
--- NOTE | 2019-12-22 07:06 | NUR ---
GAVE REPORT TO ONCOMING NURSE. CALL LIGHT WITHIN REACH. PATIENT ASLEEP IN BED. HOURLY ROUNDING PERFORMED.
[2019-12-22] MEDS ORDERED: POTASSIUM CHLORIDE 10MEQ EA PO ONE (08:15)
[2019-12-22] MEDS: GEMFIBROZIL 600 MG TAB PO SCH ×2 (09:00→17:20)
[2019-12-22] MEDS ORDERED: ATENOLOL 50 MG TAB PO SCH (09:00)
[2019-12-22] MEDS: CEFTRIAXONE SOD 1 GM/NS 50 ML 50 ML IV SCH (09:00)
[2019-12-22] MEDS: LISINOPRIL 10 MG TAB PO SCH (09:00)
[2019-12-22] MEDS: MULTIVITAMINS/MINERALS TAB PO SCH (09:00)
[2019-12-22] MEDS: CITALOPRAM HYDROBROMIDE 20 MG TAB PO SCH (09:00)
[2019-12-22] MEDS: METOPROLOL SUCCINATE 50 MG TAB XL PO SCH (09:15)
[2019-12-22] MEDS: MORPHINE SULFATE 2 MG/ML SYR 1ML IV PRN ×2 (11:43→17:20)
--- NOTE | 2019-12-22 18:50 | NUR ---
RECEIVED REPORT FROM PREVIOUS NURSE. CALL LIGHT WITHIN REACH. PATIENT ASLEEP IN BED. ROUNDING PERFORMED.
[2019-12-23] VITALS (8 sets, daily range): BP systolic 138–184; BP diastolic 58–94
[2019-12-23] MEDS: METRONIDAZOLE 500MG/NS 100ML 100 ML IV SCH ×3 (03:57→19:59)
[2019-12-23] MEDS: SOD CHL 0.45%/POT CHL 20MEQ 1,000 ML IV SCH ×2 (04:00→17:25)
[2019-12-23] MEDS: ALBUTEROL/IPRATROPIUM 3 ML NEB NEB SCH ×3 (07:00→20:30)
--- NOTE | 2019-12-23 07:13 | NUR ---
GAVE BEDSIDE SHIFT REPORT TO ONCOMING NURSE. CALL LIGHT WITHIN REACH. PATIENT IN BED. HOURLY ROUNDING PERFORMED
[2019-12-23] MEDS: CEFTRIAXONE SOD 1 GM/NS 50 ML 50 ML IV SCH (08:48)
[2019-12-23] MEDS: METOPROLOL SUCCINATE 50 MG TAB XL PO SCH (08:48)
[2019-12-23] MEDS: GEMFIBROZIL 600 MG TAB PO SCH ×2 (08:48→16:41)
[2019-12-23] MEDS: LISINOPRIL 10 MG TAB PO SCH (08:48)
[2019-12-23] MEDS: MULTIVITAMINS/MINERALS TAB PO SCH (08:48)
[2019-12-23] MEDS: CITALOPRAM HYDROBROMIDE 20 MG TAB PO SCH (08:48)
[2019-12-23] MEDS ORDERED: ONDANSETRON HCL 4 MG ORAL DISINTEGRATING TAB PO PRN (11:30)
[2019-12-23] MEDS: MORPHINE SULFATE 2 MG/ML SYR 1ML IV PRN ×2 (17:25→21:16)
[2019-12-23] MEDS ORDERED: ACETAMINOPHEN 325 MG TAB PO PRN (18:45)
--- NOTE | 2019-12-23 18:50 | NUR ---
RECEIVED REPORT FROM PREVIOUS NURSE. CALL LIGHT WITHIN REACH. PATIENT IN BED. ROUNDING PERFORMED
[2019-12-23] MEDS: ONDANSETRON HCL INJ 2MG/ML 2ML 2 MG/ML VIAL IV PRN (21:16)
[2019-12-24] VITALS (8 sets, daily range): BP systolic 118–152; BP diastolic 60–75
[2019-12-24] MEDS: ALBUTEROL/IPRATROPIUM 3 ML NEB NEB SCH ×4 (02:15→20:10)
[2019-12-24] MEDS: METRONIDAZOLE 500MG/NS 100ML 100 ML IV SCH ×4 (03:54→20:21)
[2019-12-24] MEDS: SOD CHL 0.45%/POT CHL 20MEQ 1,000 ML IV SCH ×3 (04:20→18:45)
[2019-12-24 06:18] LABS: BASOPHILS % 0.1 % (0.0-1.0); HEMATOCRIT 38.5 % (34.2-44.1); HEMOGLOBIN 13.5 g/dL (12.0-16.0); LYMPHOCYTES # (AUTO) 0.3 (1.0-3.2); LYMPHOCYTES % 3.4 % (18.0-39.1); MEAN CORPUSCULAR HEMOGLOBIN 34.1 pg (28-32); MEAN CORPUSCULAR HGB CONC 35.1 g/dL (31-35); MEAN CORPUSCULAR VOLUME 97.2 fL (81-99); MONOCYTES # (AUTO) 0.2 (0.2-0.8); MONOCYTES % 2.4 % (4.4-11.3); NEUTROPHILS # (AUTO) 7.9 (2.1-6.9); NEUTROPHILS % 93.5 % (38.7-80.0); PLATELET COUNT 107 x10e3/uL (140-360); RED BLOOD COUNT 3.96 x10e6/uL (3.6-5.1)
[2019-12-24 06:28] LABS: INR 1.15; PARTIAL THROMBOPLASTIN TIME 26.9 seconds (23.8-35.5); PROTHROMBIN TIME 15.4 seconds (11.9-14.5)
[2019-12-24 06:45] LABS: ANION GAP 11.4 mmol/L (8-16); BLOOD UREA NITROGEN 16 mg/dL (7-26); BUN/CREATININE RATIO 24 (6-25); CALCIUM 8.3 mg/dL (8.4-10.2); CARBON DIOXIDE 27 mmol/L (22-29); CHLORIDE 105 mmol/L (98-107); CREATININE, SERUM 0.68 mg/dL (0.57-1.11); EST GLOMERULAR FILTRATION RATE > 60 ML/MIN (60-); GLUCOSE 93 mg/dL (74-118); POTASSIUM 3.4 mmol/L (3.5-5.1); SODIUM 140 mmol/L (136-145)
--- NOTE | 2019-12-24 07:01 | NUR ---
GAVE BEDSIDE SHIFT REPORT TO ONCOMING NURSE. CALL LIGHT WITHIN REACH. PATIENT IN BED. HOURLY ROUNDING PERFORMED.
[2019-12-24] MEDS: GEMFIBROZIL 600 MG TAB PO SCH ×2 (07:18→16:30)
[2019-12-24] MEDS ORDERED: GADOBENATE DIMEGLUMINE 1 ML IV ONE (08:23)
[2019-12-24 08:42] LABS: LYMPHOCYTES % (MANUAL) 2 % (19-48); MONOCYTES % (MANUAL) 1 % (3.4-9.0); NEUTROPHILS % (MANUAL) 97 % (40-74); RBC MORPHOLOGY COMMENT NORMAL
[2019-12-24 08:43] LABS: PLATELET MORPHOLOGY COMMENT RARE EDTA CLUMPING
[2019-12-24 08:44] LABS: PLATELET ESTIMATE SLIGHTLY DECREASED
--- NOTE | 2019-12-24 10:23 | NUR ---
oral medication being held until post liver biopsy.
[2019-12-24] MEDS: CEFTRIAXONE SOD 1 GM/NS 50 ML 50 ML IV SCH (10:25)
[2019-12-24] MEDS ORDERED: FENTANYL CITRATE/PF 100MCG/2 ML INJ ONE (13:54)
[2019-12-24] MEDS ORDERED: MIDAZOLAM HCL 2 MG/2 ML VIAL ONE (13:54)
--- NOTE | 2019-12-24 16:08 | Diagnostic Imaging Report ---
PROCEDURE: Ultrasound-guided biopsy Procedural Personnel Attending physician(s): Liver masses Fellow physician(s): None Resident physician(s): None Advanced practice provider(s): None Pre-procedure diagnosis: Lung cancer, Liver masses Post-procedure diagnosis: Same Indication: Numerous liver masses on CT Previous biopsy of same target (QCDR): No Additional clinical history: None Complications: No immediate complications. IMPRESSION: Ultrasound-guided biopsy of right liver masses. Plan: Specimen(s) sent for evaluation. PROCEDURE SUMMARY: - Percutaneous US-guided right liver mass biopsy - Additional procedure(s): None PROCEDURE DETAILS: Pre-procedure Reference imaging for biopsy target: CT abdomen/pelvis 12/20/2019 Consent: Informed consent for the procedure including risks, benefits and alternatives was obtained and time-out was performed prior to the procedure. Preparation: The site was prepared and draped using maximal sterile barrier technique including cutaneous antisepsis. Anesthesia/sedation Level of anesthesia/sedation: Moderate sedation (conscious sedation) Anesthesia/sedation administered by: Independent trained observer under attending supervision with continuous monitoring of the patient?s level of consciousness and physiologic status Total intra-service sedation time (minutes): 30 Imaging prior to biopsy The patient was positioned supine. Initial ultrasound was performed. Biopsy target: - Location: Right liver Other findings: None Biopsy Local anesthesia was administered. Under US guidance, the biopsy needle was advanced to the target and biopsy was performed. Coaxial needle: 17 gauge Core needle biopsy device: [employer] Core needle size: 18 gauge Number of core specimens: 3 On-site biopsy touch preparation: Yes Additional sampling recommendations: None Preliminary assessment of sample adequacy: Not applicable Needle removal The biopsy needle was removed and a sterile dressing was applied. Tract embolization: None Imaging following biopsy Immediate post-biopsy ultrasound was performed. Post-biopsy imaging findings: No hematoma Additional Details Additional description of procedure: None Equipment details: None Specimens removed: Biopsy samples as detailed above Estimated blood loss (mL): Less than 10 Standardized report: [email or web address] Attestation Signer name: Christine Elizabeth MD I attest that I was present for the entire procedure. I reviewed the stored images and agree with the report as written. Signed by: Christine Elizabeth MD on 12/24/2019 4:05 PM
[2019-12-24] MEDS: MULTIVITAMINS/MINERALS TAB PO SCH (16:30)
[2019-12-24] MEDS: CITALOPRAM HYDROBROMIDE 20 MG TAB PO SCH (16:30)
[2019-12-24] MEDS: LISINOPRIL 10 MG TAB PO SCH (16:32)
[2019-12-24] MEDS: METOPROLOL SUCCINATE 50 MG TAB XL PO SCH (16:32)
--- NOTE | 2019-12-24 16:36 | NUR ---
patient back from liver biopsy and MRI. diet restarted and am meds given. vitals stable
--- NOTE | 2019-12-24 16:58 | Diagnostic Imaging Report ---
History: Lung cancer, hypoxia Comparison studies: Head CT 10/06/2017. Technique: Axial DWI, axial T2 FLAIR, axial SWI, precontrast 3-D T1, axial T2*GRE and postcontrast axial and coronal T1. Intravenous contrast: 14 cc of MultiHance Findings: Several pulse sequences are somewhat limited artifacts related to patient motion. In spite of limitations: Scalp: No abnormal signal. No masses. Bone marrow: Normal in signal intensity. Brain sulci: Mildly prominent Ventricles: There is compensatory dilatation of the ventricles with ex vacuo dilatation of the frontal horn and body of the left lateral ventricle. Parenchyma: Scattered and confluent T2 FLAIR hyperintensities in the supratentorial white matter and in the dayna are nonspecific but are most compatible with chronic microvascular ischemic changes. Small chronic right occipital infarct centered along the right precuneus gyrus with encephalomalacia and gliosis is unchanged. Chronic lacunar infarcts are present in the head of the right caudate nucleus, left striatocapsular region, right lentiform nucleus and left precentral subcortical white matter are unchanged No mass, abnormal restricted diffusion or acute ischemia. Small foci of decreased signal on the T2*GRE sequence in the right parietal lobe and bilateral insula may be tiny dystrophic calcifications or possibly chronic microhemorrhages. Suprasellar region: No abnormalities. Craniocervical junction: Patent foramen magnum. No Chiari one malformation. Vessels: Normal flow-voids in the arteries and sinuses. IMPRESSION: No evidence of intracranial or calvarial metastatic disease. No other changes from the prior head CT of 10/06/2017. Chronic findings: 1. Generalized parenchymal volume loss. 2. Chronic right occipital insult. 3. Moderate chronic microvascular ischemic changes with chronic lacunar infarcts as described. Signed by: Dr. Freddie Starkey M.D. on 12/24/2019 4:55 PM
[2019-12-25] VITALS (8 sets, daily range): BP systolic 120–152; BP diastolic 59–85
[2019-12-25] MEDS: ALBUTEROL/IPRATROPIUM 3 ML NEB NEB SCH ×4 (01:10→19:40)
[2019-12-25] MEDS: SOD CHL 0.45%/POT CHL 20MEQ 1,000 ML IV SCH ×2 (01:19→14:06)
[2019-12-25] MEDS: ONDANSETRON HCL INJ 2MG/ML 2ML 2 MG/ML VIAL IV PRN ×2 (01:39→07:08)
[2019-12-25] MEDS: MORPHINE SULFATE 2 MG/ML SYR 1ML IV PRN ×3 (01:39→10:45)
[2019-12-25] MEDS: METRONIDAZOLE 500MG/NS 100ML 100 ML IV SCH ×3 (04:09→19:58)
--- NOTE | 2019-12-25 07:15 | NUR ---
The pt. seems confused at rounds. She does not answer questions directly and if she answers her response is "I don't know"
[2019-12-25] MEDS: GEMFIBROZIL 600 MG TAB PO SCH ×2 (09:18→17:31)
[2019-12-25] MEDS: METOPROLOL SUCCINATE 50 MG TAB XL PO SCH (09:19)
[2019-12-25] MEDS: MULTIVITAMINS/MINERALS TAB PO SCH (09:19)
[2019-12-25] MEDS: CEFTRIAXONE SOD 1 GM/NS 50 ML 50 ML IV SCH (09:19)
[2019-12-25] MEDS: CITALOPRAM HYDROBROMIDE 20 MG TAB PO SCH (09:19)
[2019-12-25] MEDS: LISINOPRIL 10 MG TAB PO SCH (09:19)
--- NOTE | 2019-12-25 10:45 | NUR ---
Pt sleeping soundly and no family present. [employer] left a card describing availability of teaching assistant and instructions on how to contact a teaching assistant. JUSTIN MCELROY [employer] Spiritual Care Department O: [phone]
[2019-12-26] VITALS (7 sets, daily range): BP systolic 141–155; BP diastolic 73–112
[2019-12-26] MEDS: SOD CHL 0.45%/POT CHL 20MEQ 1,000 ML IV SCH (00:15)
[2019-12-26] MEDS: ALBUTEROL/IPRATROPIUM 3 ML NEB NEB SCH ×5 (01:00→19:00)
[2019-12-26] MEDS: MORPHINE SULFATE 2 MG/ML SYR 1ML IV PRN ×2 (02:41→08:54)
[2019-12-26] MEDS: ONDANSETRON HCL INJ 2MG/ML 2ML 2 MG/ML VIAL IV PRN (02:41)
[2019-12-26] MEDS: METRONIDAZOLE 500MG/NS 100ML 100 ML IV SCH ×3 (04:08→20:51)
--- NOTE | 2019-12-26 08:42 | NUR ---
FAMILY IS MEETING WITH HOSPICE COMPANY TODAY TO DETERMINE IF WANT SERVICE. WILL UPDATE WHEN I GET MORE INFORMATION
[2019-12-26] MEDS: CEFTRIAXONE SOD 1 GM/NS 50 ML 50 ML IV SCH (08:50)
[2019-12-26] MEDS: CITALOPRAM HYDROBROMIDE 20 MG TAB PO SCH (08:50)
[2019-12-26] MEDS: MULTIVITAMINS/MINERALS TAB PO SCH (08:50)
[2019-12-26] MEDS: MEGACE 400MG/ 10ML CUP PO SCH (08:50)
[2019-12-26] MEDS: GEMFIBROZIL 600 MG TAB PO SCH ×2 (08:50→17:08)
[2019-12-26] MEDS: LISINOPRIL 10 MG TAB PO SCH (08:51)
[2019-12-26] MEDS: METOPROLOL SUCCINATE 50 MG TAB XL PO SCH (08:51)
--- NOTE | 2019-12-26 09:00 | NUR ---
The pt. is moaning with pain and was medicated for pain. Dr's visited and orders received. NO distention noted on bladder scan and ct abd is pending.
[2019-12-26] MEDS ORDERED: MAGNESIUM HYDROXIDE 30 ML UDC PO PRN (09:15)
--- NOTE | 2019-12-26 11:21 | Diagnostic Imaging Report ---
EXAM: CT Abdomen and Pelvis WITHOUT intravenous contrast INDICATION: Abdominal pain, lung cancer COMPARISON: Chest abdomen and pelvis CT 12/20/2019 TECHNIQUE: Abdomen and pelvis were scanned utilizing a multidetector helical scanner from the lung base to the pubic symphysis without administration of IV contrast. Coronal and sagittal reformations were obtained. IV CONTRAST: None ORAL CONTRAST: None COMPLICATIONS: None RADIATION DOSE: Total DLP: 233 mGy*cm Dose modulation, iterative reconstruction, and/or weight based adjustment of the mA/kV was utilized to reduce the radiation dose to as low as reasonably achievable. FINDINGS: LOWER THORAX: Large right pleural effusion and associated right lower lobe atelectasis. Small left pleural effusion. Left lower lobe dependent subsegmental atelectasis. Atherosclerotic coronary artery calcifications. HEPATOBILIARY: Innumerable hypodense lesions throughout the liver consistent with metastatic disease. SPLEEN: No splenomegaly. PANCREAS: No focal masses or ductal dilatation. ADRENALS: No adrenal nodules. KIDNEYS/URETERS: No hydronephrosis, stones, or solid mass lesions. PELVIC ORGANS/BLADDER: Distended bladder. PERITONEUM / RETROPERITONEUM: New pneumoperitoneum centered in the right upper abdomen. No free fluid. LYMPH NODES: No lymphadenopathy. VESSELS: Diffuse atherosclerotic calcifications of the abdominal aorta and major branches. GI TRACT: Air-fluid levels in the large bowel and dilation of the cecum to 9 cm, and new compared to the prior CT of 12/20/2019. BONES AND SOFT TISSUES: No acute osseous injury. Prominent degenerative changes of the visualized spine. Mild diffuse osteopenia. IMPRESSION: New pneumoperitoneum in the setting of new large bowel dilation up to 9 mm at the cecum with large bowel air-fluid levels. Bowel obstruction with perforation cannot be excluded. Recommend correlation with recent surgery/instrumentation. Large right pleural effusion and small left pleural effusion, increased from 12/20/2019. Diffuse liver metastases. Signed by: Christine Elizabeth MD on 12/26/2019 11:18 AM
--- NOTE | 2019-12-26 11:55 | NUR ---
Dr. Trimble called to results of the ct scan and asked that Dr. Zapata be consulted . I called Dr. Zapata who was just here to see another pt. and he will see the pt.
--- NOTE | 2019-12-26 12:07 | NUR ---
Dr. Zapata here and has seen the pt. and will call with recommendations
--- NOTE | 2019-12-26 14:33 | NUR ---
CONTACTED [facility] AND THEY STATE HAVE NOT SPOKE WITH FAMILY YET, DR ARELLANO STATED TO NURSE HE WOULD DISCUSS PLAN WITH DR NEGRETE. STILL PENDING HOSPICE ACCEPTANCE.
--- NOTE | 2019-12-26 15:18 | NUR ---
NOTIFIED THAT FAMILY MEETING WITH HOSPICE IN MORNING, WILL UPDATE WHEN GET MORE INFORMATION.
[2019-12-26] MEDS: DOCUSATE SODIUM 100 MG CAP PO SCH (17:08)
--- NOTE | 2019-12-26 17:21 | NUR ---
Nutrition Screen Note RD Recommendation for Physician: - Diet per MD Plan of Care: RD following, monitoring for tolerance and adequacy Nutrition reason for involvement: LOS Primary Diagnose(s): hypoxia, lung cancer, liver metastasis PMH: COPD, wt loss, HTN, anxiety, dyslipidemia, cholecystectomy Ht: 65 in Wt: 158 lb BMI: 26.3 kg/m2 IBW: [address] Assessment: (12/25) 84 YOF admitted for lung cancer with mets to liver. Pt confused, unable to provide hx. Noted hx of progressive wt loss per chart, unable to quantify. Pt with poor intake x 2 days. Pt pending hospice 2/2 current medical conditions. Chart reviewed. Labs and meds reviewed. Will continue to monitor. Current Diet: Cardiac Malnutrition Evaluation (12/26/19) The patient does not meet criteria for a specified degree of malnutrition at this time. Will re-evaluate at follow-up as appropriate. Unable to assess, pt confused- unable to obtain hx. Diet Education Needs Assessment: Diet education not indicated. Diet tolerance: tolerating- poor intake x 2 days Nutrition Care Level: low- per hospice status Signed: Radha Wade RD, LD, [facility]
--- NOTE | 2019-12-26 18:12 | Consultation ---
DATE OF CONSULTATION: 12/26/2019 CHIEF COMPLAINT: Abdominal pain. HISTORY OF PRESENT ILLNESS: The patient is an 84-year-old female, known to have metastatic lung carcinoma to the liver, transitioned for hospice care. The patient developed abdominal pain in approximately one day. No vomiting. No diarrhea. No fever or chills. PAST MEDICAL HISTORY: Positive for COPD, hypertension, anxiety disorder, hyperlipidemia, recent diagnosis of lung cancer, metastasis to the abdominal cavity, liver with ascites. PAST SURGICAL HISTORY: Positive for hysterectomy, cholecystectomy and back surgery. ALLERGIES: THE PATIENT IS ALLERGIC TO PIROXICAM. SOCIAL HABITS: The patient has a history of smoking. REVIEW OF SYSTEMS: As in HPI. PHYSICAL EXAMINATION: VITAL SIGNS: Stable. She is afebrile. GENERAL: The patient is awake, responsive, in moderate abdominal discomfort. HEENT: Sclerae anicteric. NECK: Supple. LUNGS: Decreased bilateral breath sounds, but no wheezes or rhonchi. HEART: Regular rate and rhythm. ABDOMEN: Guarding throughout with rebound tenderness to deep palpation. EXTREMITIES: No cyanosis or edema. LABORATORY DATA: White cell count 8, hemoglobin of 13, creatinine is 0.6. CT scan revealed pneumoperitoneum with mild cecal dilatation. No bowel obstruction on CT. ASSESSMENT: Pneumoperitoneum likely secondary to perforated viscus in the setting of metastatic lung cancer and the patient in hospice. PLAN: Supportive and comfort care is most appropriate in this setting. We can follow the patient with you. Freddie Zapata MD DNL/MODL /[id number]
--- NOTE | 2019-12-26 21:00 | NUR ---
PATIENT IS OFF UNIT FOR HIDA SCAN
--- NOTE | 2019-12-26 22:27 | NUR ---
PATIENT IS BACK TO UNIT
--- NOTE | 2019-12-26 22:41 | Diagnostic Imaging Report ---
Post-Cholecystectomy HIDA Scan Clinical information: Abdominal pain. Prior cholecystectomy. CT today showed pneumoperitoneum and large bowel obstruction. Report: Following intravenous administration of 6 mCi of technetium-99m mebrofenin, dynamic images of the abdomen in the anterior projection were obtained through 60 minutes. Perfusion to the liver is normal. Extraction of tracer by the liver parenchyma is mildly prolonged. Tracer appears in the biliary tract by 5 minutes post injection. Tracer is seen within the small bowel by 15 minutes. There is no tracer seen to suggest a remnant cystic duct. There is no reflux of tracer from the duodenum to the stomach although some tracer refluxes to the afferent portion of the duodenum. No free tracer is seen in the gallbladder fossa, along the liver capsule, in the right or left pericolic gutters or freely within the peritoneal cavity. Impression: 1. No scan evidence of a bile leak. 2. Mild hepatocyte dysfunction evidenced by mildly prolonged extraction of tracer from the blood pool by the hepatocytes. Signed by: Dr. Isabel Tomas M.D. on 12/26/2019 10:38 PM
[2019-12-27] VITALS: BP 143/77
[2019-12-27] MEDS: ALBUTEROL/IPRATROPIUM 3 ML NEB NEB SCH ×2 (02:00→08:50)
[2019-12-27] MEDS: MORPHINE SULFATE 2 MG/ML SYR 1ML IV PRN (03:01)
[2019-12-27] MEDS: ONDANSETRON HCL INJ 2MG/ML 2ML 2 MG/ML VIAL IV PRN (03:01)
[2019-12-27 04:00] VITALS: BP 145/61
[2019-12-27] MEDS: METRONIDAZOLE 500MG/NS 100ML 100 ML IV SCH ×2 (04:50→11:57)
[2019-12-27] MEDS: GEMFIBROZIL 600 MG TAB PO SCH (07:30)
[2019-12-27] MEDS: MEGACE 400MG/ 10ML CUP PO SCH (08:38)
[2019-12-27] MEDS: LISINOPRIL 10 MG TAB PO SCH (08:38)
[2019-12-27] MEDS: DOCUSATE SODIUM 100 MG CAP PO SCH (08:38)
[2019-12-27] MEDS: CITALOPRAM HYDROBROMIDE 20 MG TAB PO SCH (08:38)
[2019-12-27] MEDS: MULTIVITAMINS/MINERALS TAB PO SCH (08:38)
[2019-12-27] MEDS: METOPROLOL SUCCINATE 50 MG TAB XL PO SCH (08:38)
[2019-12-27] MEDS: CEFTRIAXONE SOD 1 GM/NS 50 ML 50 ML IV SCH (08:42)
[2019-12-27 08:49] VITALS: BP 128/66
--- NOTE | 2019-12-27 09:35 | NUR ---
[facility] meeting with family this morning at 10am.
[2019-12-27 10:42] VITALS: BP 128/66
[2019-12-27 11:43] VITALS: BP 119/69
--- NOTE | 2019-12-27 12:17 | NUR ---
PT BEING PICKED UP BY HOSPICE AT 2PM, OOH DNR RECEIVED AND PUT ON CHART. LT NURSE KNOW ABOUT DC PLAN
--- NOTE | 2019-12-27 13:55 | NUR ---
spoke with Mirlande Velma, [id number], on the phone and discussed discharge paperwork/instructions.
[2019-12-27 16:18] VITALS: BP 128/97
== END 2019-12-27 17:22 | disposition hospice, home (50) | DRG 436 ==
LOC: ER 17:32 → ERHOLD 23:33 → MED/SURG2 12-21 04:17
PROVIDERS: ADMIT Internal Medicine; ATTEND Internal Medicine
PROC: 0FB13ZX Excision of Right Lobe Liver, Percutaneous Approach, Diagnostic (ICD-10-PCS; principal; 2019-12-21)
DX: C78.7 Secondary malignant neoplasm of liver and intrahepatic bile duct (principal); C34.91 Malignant neoplasm of unspecified part of right bronchus or lung; C79.51 Secondary malignant neoplasm of bone; F17.200 Nicotine dependence, unspecified, uncomplicated; Z11.59 Encounter for screening for other viral diseases; Z66 Do not resuscitate; Z51.5 Encounter for palliative care
CPT/HCPCS: 36415; 47000; 70553; 71045; 71260; 74176; 74177; 74470; 76942; 78227; 80048; 80053; 82140; 82378; 82550; 82553; 82948; 83735; 83880; 84100; 84443; 84484; 85025; 85610; 85730; 87635; 88307; 88342; 93005; 93306; 94640; 99285; A9537; J0456; J0696; J2250; J2270; J2405; J3010; J3480; J7030; Q9967